=== PATIENT | female | born 1960 | race Two or more races ===

== ENCOUNTER 2020-06-18 11:06 | Outpatient (CLI) | payer OTHER | END 2020-06-18 11:54 | disposition home or self-care (01) | LOC: OFIC 805 11:06 | PROVIDERS: ATTEND Otolaryngology Otology & Neurotology | DX: J03.80 Acute tonsillitis due to other specified organisms (principal); K13.79 Other lesions of oral mucosa ==

== ENCOUNTER 2021-05-18 06:06 | Day surgery (SDC) | payer OTHER | END 2021-05-18 09:23 | disposition home or self-care (01) | LOC: AMB-ENDOS 06:06 | PROVIDERS: ATTEND Surgery | DX: D12.5 Benign neoplasm of sigmoid colon (principal); Z20.822 Contact with and (suspected) exposure to COVID-19 ==